=== PATIENT | male | born 1955 | race Caucasian/White ===

== ENCOUNTER → 2017-07-15 | Outpatient (CLI) | payer OTHER ==
--- NOTE | 2017-07-16 15:18 | REP ---
Clinical: Chronic respiratory disease. Dyspnea . Comparison: 07/17/2016 . Technique: PA and lateral. Findings: The mediastinum and cardiac silhouette are normal. The lung guevara insert chronic changes without acute consolidation, effusion, or pneumothorax. The skeletal structures are intact and normal. Impression: 1. No acute cardiopulmonary process. Signed by Hiram Oglesby MD 07/16/2017 03:09 P
== END ==
LOC: M SMT 11:57
PROVIDERS: ATTEND Internal Medicine Pulmonary Disease
DX: J98.4 Other disorders of lung (principal)

== ENCOUNTER → 2017-09-30 | Outpatient (CLI) | payer BC | LOC: M SMT 11:17 | DX: M17.0 Bilateral primary osteoarthritis of knee (principal) | CPT/HCPCS: 73564 ==

== ENCOUNTER → 2017-10-20 | Outpatient (REF) | LOC: M SMT 11:24 | DX: M54.5 Low back pain (principal) ==

== ENCOUNTER → 2018-07-30 | Outpatient (CLI) | payer BC | LOC: M SMT 08:51 | DX: J68.4 Chronic respiratory conditions due to chemicals, gases, fumes and vapors (principal) | CPT/HCPCS: 71046 ==

== ENCOUNTER → 2019-08-12 | Outpatient (CLI) | payer MEDICARE ==
--- NOTE | 2019-08-12 15:10 | REP ---
PA and lateral chest: Comparison is 07/30/2018. The lung guevara are clear. The cardiac size is normal. The edil, mediastinum, and skeletal structures are unremarkable. Impression: Negative PA and lateral chest. There is no interval change. Electronically Signed by Edgardo Horton MD 08/12/2019 03:01 P
== END ==
LOC: M WUC 12:27
PROVIDERS: ATTEND Internal Medicine Pulmonary Disease
DX: J68.4 Chronic respiratory conditions due to chemicals, gases, fumes and vapors (principal)

== ENCOUNTER → 2020-08-20 | Outpatient (CLI) | payer MEDICARE ==
--- NOTE | 2020-08-20 14:27 | REP ---
INDICATION: CHRONIC RESPIRATORY CONDITION DUE TO CHEMICALS. COMPARISON: 08/12/2019, 07/30/2018, 07/15/2017 TECHNIQUE: PA and lateral views FINDINGS: The superior mediastinal structures are midline. The cardiac silhouette is unremarkable in size, shape, and position. The diaphragmatic surfaces of the lungs are regular, and the costophrenic angles are clear. The pulmonary guevara are clear. The imaged osseous structures are intact. IMPRESSION: There is no acute cardiopulmonary disease. <Electronically signed by [place] > 08/20/20 [id number]
== END ==
LOC: M WUC 10:53
PROVIDERS: ATTEND Internal Medicine Pulmonary Disease
DX: J68.4 Chronic respiratory conditions due to chemicals, gases, fumes and vapors (principal)

== ENCOUNTER → 2021-09-18 | Outpatient (CLI) | payer MEDICARE ==
--- NOTE | 2021-09-18 08:42 | REP ---
INDICATION: CHRONIC RESP COND DUE TO CHEMICALS, GASES, FUMES AND VAPORS COMPARISON: 08/20/2020 TECHNIQUE: PA and lateral. FINDINGS: The mediastinum and cardiac silhouette are normal. The lung guevara are clear and without acute consolidation, effusion, or pneumothorax. The skeletal structures are intact and normal. IMPRESSION: No acute cardiopulmonary process. <Electronically signed by Hiram Oglesby > 09/18/21 [id number]
== END ==
LOC: M PLAIMG 08:13
PROVIDERS: ATTEND Internal Medicine Pulmonary Disease
DX: J68.4 Chronic respiratory conditions due to chemicals, gases, fumes and vapors (principal)

== ENCOUNTER → 2023-04-02 | Outpatient (CLI) | payer MEDICARE | LOC: M WUC 12:21 | PROVIDERS: ATTEND Internal Medicine Pulmonary Disease | DX: J68.4 Chronic respiratory conditions due to chemicals, gases, fumes and vapors (principal) ==

== ENCOUNTER → 2025-05-01 | Outpatient (CLI) | payer MEDICARE | LOC: M WUC 09:13 | PROVIDERS: ATTEND Internal Medicine Pulmonary Disease | DX: J68.4 Chronic respiratory conditions due to chemicals, gases, fumes and vapors (principal) ==

== ENCOUNTER → 2025-05-23 | Outpatient (CLI) | payer MEDICARE ==
[2025-05-23 12:51] LABS: ALT/SGPT 47.0 U/L (7.0-40); AST/SGOT 29.0 U/L (<34); CALCIUM LEVEL 9.7 MG/DL (8.3-10.6); CARBON DIOXIDE LEVEL 29.0 MMOL/L (20-31); CHLORIDE LEVEL 107.0 MMOL/L (98-107); CHOLESTEROL LEVEL 196.0 MG/DL (<200); CHOLESTEROL RISK RATIO 4.52 (<5); CREATININE FOR GFR 1.05 MG/DL (0.70-1.30); GLOMERULAR FILTRATION RATE 75.9 (>42); LDL CHOLESTEROL 132.3 MG/DL (<100); MAGNESIUM LEVEL 1.8 MG/DL (1.8-2.4); NON-HDL-C 152.7 MG/DL; POTASSIUM SERUM 4.8 MMOL/L (3.5-5.1); SODIUM LEVEL 146.0 MMOL/L (136-145); TRIGLYCERIDES LEVEL 102.0 MG/DL (<150)
[2025-05-23 12:52] LABS: PLATELET COUNT, AUTOMATED 216 10^3/uL (150-450)
== END ==
LOC: M WUC 08:01
PROVIDERS: ATTEND Physician Assistant
DX: I48.21 Permanent atrial fibrillation (principal); I10 Essential (primary) hypertension; E78.00 Pure hypercholesterolemia, unspecified